=== PATIENT | female | born 1960 | race Caucasian/White ===

== ENCOUNTER 2018-06-15 07:04 | Inpatient (IN) ==
--- NOTE | 2018-06-08 14:07 | PAT Medication Instructions ---
Medication Instructions Date of Service June 08, 2018 Home Medications acetaminophen [Tylenol Arthritis1,300 mg PO Q8H PRN ascorbic acid (vitamin C) [[id number] mg PO QAM calcium carbonate-vitamin D31 tab PO QAM [id number] mg PO BID methotrexate sodium6 tab PO UD prednisone5 mg PO BID ASK your surgeon for instructions [id number] mg PO BID ASK your prescriber and surgeon methotrexate sodium6 tab PO UD DO NOT take the morning of surgery ascorbic acid (vitamin C) [[id number] mg PO QAM calcium carbonate-vitamin D31 tab PO QAM Take morning of surgery With a small sip of water, OTHERWISE NOTHING TO EAT OR DRINK AFTER MIDNIGHT: acetaminophen [Tylenol Arthritis1,300 mg PO Q8H PRN (okay to take up to 4 hours prior to surgery if needed) prednisone5 mg PO BID Take evening before surgery acetaminophen [Tylenol Arthritis1,300 mg PO Q8H PRN (if needed) prednisone5 mg PO BID Other Notes If you have any questions please call us at [phone] or [phone] or [phone] or [phone]
--- NOTE | 2018-06-09 11:36 | Anesthesiology Consultation ---
Date of Service June 09, 2018 Assessment & Plan (1) Encounter for pre-operative examination: Chart Review Chart Review: Acceptable Risk for Surgery and Patient seen in Pre Admission Testing Teaching & Discussion Pre-Anesthesia Teaching/Discussion Notes: Instructed NPO after midnight before surgery,except medications with 15 cc of water. Medication instructions provided according to the PAT guidelines. History Surgery Operation Date: 06/15/18 14:20 Proposed Procedures p Left Total Knee Arthroplasty - Dash Tyler DO Height/Weight Height: 5 ft 2 in Weight: 81.5 kg Allergies Allergy/AdvReac Type Severity Reaction Status Date / Time No Known Allergies Allergy Verified 05/19/18 14:00 Medications Home Medications Medication Instructions Recorded Confirmed Last Taken acetaminophen [Tylenol Arthritis 1,300 mg PO Q8H PRN 05/19/18 05/19/18 Unknown Pain] ascorbic acid (vitamin C) [Vitamin 500 mg PO QAM 05/19/18 05/19/18 Unknown C] calcium carbonate-vitamin D3 1 tab PO QAM 05/19/18 05/19/18 Unknown [Calcium 500 + D] indomethacin 25 mg PO BID 05/19/18 05/19/18 Unknown methotrexate sodium 6 tab PO UD 05/19/18 05/19/18 Unknown prednisone 5 mg PO BID 05/19/18 05/19/18 Unknown Past Medical History Medical History Anemia PCP MONITORING; S/P IRON INFUSIONS (03/2018) Obesity Osteoarthritis Rheumatoid arthritis ON MTX/CHRONIC PREDNISONE 5MG BID Past Family History Family History Brother Family history of diabetes mellitus Past Surgical History Surgical History History of total hip arthroplasty RIGHT Hx of foot surgery RIGHT Hx of toe surgery RIGHT 2ND AMPUTATION Past Anesthesia History No Hx of Anesthesia Complications and No Family Hx of Anesthesia Complications History of PONV No Motion Sickness Screening History of Motion Sickness: No Social History Smoking Status: Never smoker Do You Dip or Chew Tobacco: No Hx Alcohol Use: No Hx Substance Use: No Exercise / Class Metabolic Activity III < 4 Walking/Shop/Light housework (USES CANE PRN) Review of Systems Patient denies chest pain, shortness of breath, cough, wheezing, palpitations. Physical Exam Vital Signs VITALS BP 108/69 P 85 TEMP 98.2 SP02 94%RA RESP 14 Full neck and c-spine range of motion. Full TMJ range of motion. TMD 3.5 finger breaths Mallampati Score 3 Dentition: intact Lungs: clear throughout to auscultation Cardiac: regular rate and rhythm, II/ systolic murmur Spine: normal Carotid arteries: negative bruit Extremities: no edema Testing Electrocardiogram Date: 06/09/18 Findings: + NSR @ (79) Low voltage QRS. Chest X-Ray Date: 06/09/18 Findings: + NAD Mild compression deformity at L1. This is technically age-indeterminate but likely old. Mild interstitial thickening which is likely chronic. Echocardiogram Date: 06/11/17 LVEF 60%. No RWMA. No significant valvular disease. Trace TR. Cervical Spine Date: 06/09/18 Alignment appears preserved with neutral, flexion and extension views. No acute fracture or subluxation. Demineralized appearance of the bones with degenerative changes. Laboratory Results 06/09/18 11:46 06/09/18 11:46 Blood Type O Positive 06/09/18 11:46 Antibody Screen NEGATIVE 06/09/18 11:46 PT 10.4 Seconds (9.0-12.0) 06/09/18 11:46 INR 1.0 (0.9-1.1) 06/09/18 11:46 APTT 24.5 Seconds (21.0-31.0) 06/09/18 11:46 Hemoglobin A1c 5.1 % (4.5-5.6) 06/09/18 11:46 Urine Color Dark Yellow 06/09/18 Unknown Urine Appearance Turbid (Clear) H 06/09/18 Unknown Urine pH 7.5 (4.5-7.5) 06/09/18 Unknown Ur Specific [place] 1.024 (1.000-1.030) 06/09/18 Unknown Urine Protein Negative (Negative) 06/09/18 Unknown Urine Glucose (UA) Negative (Negative) 06/09/18 Unknown Urine Ketones Trace (Negative) H 06/09/18 Unknown Urine Nitrite Negative (Negative) 06/09/18 Unknown Ur Leukocyte Esterase Negative (Negative) 06/09/18 Unknown Urine WBC (Auto) 1-5 /hpf (0-5) 06/09/18 Unknown Urine RBC (Auto) 0-4 /hpf (0-4) 06/09/18 Unknown U Hyaline Cast (Auto) 1-5 /lpf (0-5) 06/09/18 Unknown U Epithel Cells (Auto) 10-20 /lpf (0-5) H 06/09/18 Unknown Urine Bacteria (Auto) Negative (Negative) 06/09/18 Unknown
--- NOTE | 2018-06-09 12:20 | XRay Report ---
XR cervical spine 2 or 3V HISTORY: 57 years-old Female RHEUMATOID ARTHRITIS chronic neck pain with history of rheumatoid arthr opathy COMPARISON: None available TECHNIQUE: 3 views of the cervical spine FINDINGS: Demineralized appearance of the bones. Moderate intervertebral disc space narrowing at C4-C5, C5-C6 a nd C6-C7 with mild multilevel spondylitic spurring and mild to moderate facet arthrosis. No acute fra cture or subluxation. Alignment appears preserved with neutral, flexion and extension views. No preve rtebral soft tissue swelling. Slight reversal of the normal cervical lordosis with flexion at C4-C5. IMPRESSION: 1. No acute fracture or subluxation. 2. Demineralized appearance of the bones with degenerative changes as above. The above report was generated using voice recognition software. It may contain grammatical, syntax o r spelling errors. Electronically signed by: Roland Steinberg M.D. 06/09/2018 12:19 PM
[2018-06-09 12:28] LABS: Basophils # (auto) 0.02 K/uL (0-0.2); Basophils % (auto) 0.2 %; Eosinophils # (auto) 0.02 K/uL (0-0.5); Eosinophils % (auto) 0.2 %; Hematocrit (blood only) 36.8 % (37-47); Hemoglobin 12.5 g/dL (12.0-16.0); Immature Granulocytes # (auto) 0.01 K/uL (0.00-0.02); Immature Granulocytes % (auto) 0.1 %; Lymphocytes # (auto) 0.87 K/uL (1.2-3.4); Lymphocytes % (auto) 8.4 %; Mean Corpuscular Volume 96.8 fL (80-100); Mean Platelet Volume 8.8 fL (7.4-10.4); Monocytes # (auto) 0.18 K/uL (0.11-0.59); Monocytes % (auto) 1.7 %; Neutrophils % (auto) 89.4 %; Platelet Count 278 K/uL (130-400); RDW Coefficient of Variation 13.9 % (11.5-14.5); RDW Standard Deviation 48.8 fL (36.4-46.3)
[2018-06-09 12:38] LABS: Partial Thromboplastin Ratio 0.9; Partial Thromboplastin Time 24.5 Seconds (21.0-31.0); Prothrombin Time 10.4 Seconds (9.0-12.0)
[2018-06-09 12:52] LABS: Estimated Average Glucose 100 mg/dl
[2018-06-09 13:02] LABS: Appearance Urine Turbid (Clear); Bacteria Urine Automated Negative (Negative); Bilirubin Urine Negative (Negative); Color Urine Dark Yellow; Glucose Urine UA Negative (Negative); Ketones Urine Trace (Negative); Leukocyte Esterase Urine Negative (Negative); Nitrite Urine Negative (Negative); Protein Urine Negative (Negative); Specific Gravity Urine 1.024 (1.000-1.030); Urobilinogen Urine Negative (Negative); pH Urine 7.5 (4.5-7.5)
--- NOTE | 2018-06-09 13:15 | XRay Report ---
XR chest Pre-admission PA/Lat HISTORY: Preop. COMPARISON: None. FINDINGS: Mild compression deformity at L1. This is technically age-indeterminate but likely old. No focal lung consolidations to suggest pneumonia. No evidence for pulmonary edema. Mild interstitial th ickening which is likely chronic. The heart is top normal in size. No pleural effusions. No pneumotho rax. IMPRESSION: No acute process. Electronically signed by: Juan J Carlos M.D. 06/09/2018 1:14 PM
[2018-06-09 13:25] LABS: Albumin Level 3.4 gm/dl (3.4-5.0); BUN Creatinine Ratio 29.6 (10-20); Calcium 9.5 mg/dl (8.5-10.1); Creatinine Clr Calc Pharmacy 84.4 ml/min; Est GFR (African American) 108.1; Est GFR (Non-African American) 93.2
--- NOTE | 2018-06-09 16:37 | History & Physical Report ---
Date of Service June 09, 2018 Assessment & Plan (1) Primary osteoarthritis of left knee: Risks and benefits of procedure discussed in detail today, patient would like to proceed with Left TKA @ [facility] as scheduled. will obtain PATs at [facility]. Will place on ASA 81mg po bid x 1 month post op, f/u 2 weeks post op for routine post-operative care and xray, sooner if having any problems. will make arrangements for HHPT at the time of discharge. stop her methotrexate 1 week prior and will resume 2 weeks after her surgery. History of Present Illness Chief Complaint: left knee pain Primary Care Provider: Kati Savage Ms Chandler is a 57 year old female who is here for a follow up of left knee pain, presents for pre-op prior to left total knee replacement at [facility]. She states that the symptoms have been chronic non-traumatic. The problem is unchanged. Currently the patient states that the symptoms are severe. The pain is described as aching, discomforting and throbbing. The symptoms occur continuously. She rates her current pain as 10/10. The symptoms are aggravated by daily activities, ascending stairs, descending stairs, first steps while awake, squatting and walking. Svitlana states that the symptoms are relieved by no specific activity. Patient is using straight cane and brace for ambulation. Patient has a walker at home she can use. Patient's PCP is Dr. Oleary. She lives in a one story home. The patient has had a previous MRI. Taking Tylenol for pain. Patient had cortisone injections. Patient has had visco injections. Allergies Allergy/AdvReac Type Severity Reaction Status Date / Time No Known Allergies Allergy Verified 05/19/18 14:00 Home Medications Home Medications Medication Instructions Recorded Confirmed Type acetaminophen [Tylenol Arthritis 1,300 mg PO Q8H PRN 05/19/18 05/19/18 History Pain] ascorbic acid (vitamin C) [Vitamin 500 mg PO QAM 05/19/18 05/19/18 History C] calcium carbonate-vitamin D3 1 tab PO QAM 05/19/18 05/19/18 History [Calcium 500 + D] indomethacin 25 mg PO BID 05/19/18 05/19/18 History methotrexate sodium 6 tab PO UD 05/19/18 05/19/18 History prednisone 5 mg PO BID 05/19/18 05/19/18 History Past Med/Surg History Medical History Anemia PCP MONITORING; S/P IRON INFUSIONS (03/2018) Obesity Osteoarthritis Rheumatoid arthritis ON MTX/CHRONIC PREDNISONE 5MG BID Surgical History History of total hip arthroplasty RIGHT Hx of foot surgery RIGHT Hx of toe surgery RIGHT 2ND AMPUTATION Family History Brother Family history of diabetes mellitus Social History Current Living Situation: Alone Other Information That Helps Us Care for You: No Feels Safe at Home: Yes Safety Concerns: Feels Safe At This Time Smoking Status: Never smoker Do You Dip or Chew Tobacco: No Hx Alcohol Use: No Hx Substance Use: No Beliefs That Will Affect Care: None Preferred Language: Tanzanian Communication Ability: Effective Cisco Network Architect Required: No Review of Systems All systems reviewed & are unremarkable except as noted in HPI & below Physical Exam 2 Constitutional: WD/WN, vitals as above no acute distress Respiratory: normal respiratory effort, lungs clear to auscultation Cardiovascular: RRR, no murmur, no edema Gastrointestinal (Abdomen): normal bowel sounds, soft, nontender, no hepatosplenomegaly Musculoskeletal: Left Knee Physical Exam Details Ankle ROM L * Active ROM - Factors: normal, Description: active pain free range of motion. Passive ROM - Factors: normal, Description: passive pain free range of motion. Hip ROM L * Active ROM - Factors: normal, Description: active pain free range of motion. Passive ROM - Factors: normal, Description: passive pain free range of motion. Knee ROM L * Active ROM - Flexion: 115 degrees, Extension: 3 degrees, Factors: pain, Description: active painful range of motion. Passive ROM - Flexion: 120 degrees , Extension: 3 degrees, Factors: pain, Description: passive painful range of motion. Strength LE Normal Strength Description - Normal lower extremity: Bilateral. Hip: Right: strength is normal, Left: strength is normal. Knee: Right: strength is normal, Left: strength is normal. Ankle/Foot: Right: strength is normal, Left: strength is normal. Knee * Inspection - Gait: limp. Alignment - Right: varus, Clinical, Left: varus. Ecchymosis - Right: none, Left: none. Effusion - Right: mild, Left: mild. Swelling - Right: mild. Maximum tenderness - Right: diffuse, Left: diffuse. Patella exam - Crepitation - Right: moderate, Left: moderate. Trinity's - Left: Positive. Ji's - lateral - Right: Positive, Left: Positive. Ji's - medial - Right: Positive, Left: Positive. Knee Comments Calf SNT, DP+2 Knee Normal Inspection - Atrophy - Right: Absent, Left: Absent. Patella exam - Apprehension - Right: Negative. Trinity's - Right: Negative. Valgus stress - Right: Negative , Left: Negative. Varus stress - Right: Negative, Left: Negative. Extensor lag - Right: Normal, Left: Normal. Neurovascular LE Normal Neurovascular examination including reflexes, sensation, and pulses is within normal limits. Results & Data Diagnostic Findings Left Knee X-ray: left knee series confirm advanced degenerative changes to the left knee, greatest medial compartments and patellofemoral joint, showing joint space narrowing, osteophyte formation and subchondral sclerosis. no acute bony pathology noted.
[~2018-06-15 07:04] MED LIST: ACETAMINOPHEN 500 MG TAB PO SCH; CEFAZOLIN 2000MG 2,000 MG/15 ML SYR IV SCH; CeleBREX 200 MG CAP PO SCH; FAMOTIDINE 20 MG TAB PO SCH; ROPIVACAINE 0.5% HCL/PF 150 MG, BUPIVACAINE 0.5% MPF 30 ML, EPINEPHrine 30MG/30ML (OR U... INFIL SCH; TRANEXAMIC ACID 1,000 MG **IV Intra-op IV SCH; TRANEXAMIC ACID 1,000 MG **IV Pre-op IV SCH; dexAMETHasone 4 MG TAB PO SCH
[2018-06-15] MEDS ORDERED: BUPIVACAINE/EPINEPHRINE 0.5% MPF 1:200,000 30 ML VIAL ONE (07:45)
[2018-06-15] MEDS ORDERED: BUPIVACAINE 0.5 % 5 MG/1 ML PF 10ML VIAL ONE (07:45)
[2018-06-15] MEDS ORDERED: DEXAMETHASONE SOD INJ 4 MG/ML VIAL ONE (07:45)
[2018-06-15] MEDS: LR 500ML BOLUS, THEN 15ML/HR IV SCH ×3 (08:09→12:45)
[2018-06-15] MEDS ORDERED: MIDAZOLAM HCL 1 MG/ML 2ML VIAL ONE ×3 (08:22→10:43)
[2018-06-15] MEDS ORDERED: fentaNYL citrate 100 MCG/2 ML VIAL ONE (08:22)
--- NOTE | 2018-06-15 08:43 | History & Physical Bridge Note ---
Date of Service June 15, 2018 History & Physical Bridge Note I have examined the patient, reviewed the History & Physical and in the interval since the performance of the History & Physical I have noted the following changes of clinical significance: no changes noted
[2018-06-15] MEDS ORDERED: BACITRACIN INJ 50,000 UNIT VIAL ONE (09:17)
[2018-06-15] MEDS ORDERED: ORTHO JOINT ANESTHETIC ONE (09:17)
[2018-06-15] MEDS ORDERED: POVIDONE-IODINE OP SOLN 30 ML BTL ONE (09:17)
[2018-06-15] MEDS ORDERED: ONDANSETRON INJ 2 MG/ML 2 ML VIAL IV PRN ×2 (09:36→12:40)
[2018-06-15] MEDS ORDERED: ePHEDrine sulfate 50 MG/ML AMP IV PRN (09:36)
[2018-06-15] MEDS ORDERED: fentaNYL citrate 100 MCG/2 ML VIAL IV PRN (09:36)
[2018-06-15] MEDS ORDERED: ATROPINE SULFATE 0.1 MG/ML 10ML SYR IV PRN (09:36)
[2018-06-15] MEDS ORDERED: LIDOCAINE HCL 2% 2 ML VIAL/AMP(20MG/ML) INFIL ONE (10:06)
[2018-06-15] MEDS ORDERED: PROPOFOL IV EMULSION 10 MG/ML 20 ML VIAL IV ONE ×2 (10:06→10:46)
[2018-06-15] MEDS ORDERED: KETAMINE HCL INJ 50 MG/ML 10 ML VIAL ONE (10:49)
--- NOTE | 2018-06-15 10:55 | Operative Report ---
Post Operative Report Pre & Post Diagnosis Operation Date: 06/15/18 10:00 Pre-Op Diagnosis: Left Knee Osteoarthritis Post-Op Diagnosis: Left Knee Osteoarthritis Procedure Operation Date: 06/15/18 10:00 Actual Procedures p Left Total Knee Arthroplasty(Left) utilizing Hightower & Nephew journey to non- bloc total knee arthroplasty size 4 femur 3 tibia 12 polyethylene 29 oval patella- Dash Tyler DO Surgeon Dash Tyler DO Human Resources Compliance Manager Tanner BHAKTA Estimated Blood Loss 5 Findings Consistent with Post-Op Diagnosis Patient presents with severe end-stage DJD left knee with joint disease no response to conservative management including anti-inflammatories injections Visco supplementations she is failed attempts at conservative management at the time of surgery no evidence of synovitis rheumatologic findings with a subchondral cystic changes marginal osteophytes aglo-sk-deyo tricompartmental Specimens Bone and cartilage Drains Medium bore Hemovac Complications none Disposition Accompanied Patient To Recovery: No Disposition: Recovery Room Indications Patient presents with complaints of ongoing pain attributed to her left knee is been no response to conservative therapy she has underlying rheumatoid disease bone to bone changes medial compartment lateral compartment patellofemoral compartment market synovitis subchondral cystic changes with marginal osteophytes she is failed attempts at conservative management and physical therapy anti-inflammatories relative rest activity modification corticosteroid injection Visco supplementation and bracing she presents for left total knee arthroplasty Description of Procedure After proper prepping and draping of the left lower extremity anterior midline incision was made over the region of the extensor extensor mechanism after meticulous hemostasis was obtained and maintained in subcutaneous tissues a medial parapatellar incision was made The patella was subluxed lateralward the medial lateral gutter were cleaned from any hypertrophic synovitis and scar tissue of the distal femoral block was placed and the distal femoral osteotomy cut was made subsequently the chamfers anterior and posterior osteotomy cuts were made utilizing the 4-in-1 block the tibia was subsequently subluxed anteriorward medial and ateral meniscal remnants were excised in their entirety remnants of the anterior and posterior cruciate ligaments were excised in their entirety excellent exposure of the proximal tibia was obtained the tibial osteotomy guide was placed on the proximal tibial osteotomy cut was made once again the knee was irrigated with copious amounts of sterile saline solution the patella was subsequently everted lateralward thickened scar tissue around the patella was removed the patella was subsequently cut utilizing a freehand technique and was drilled prepared for final preparation and placement of patella socially flexion-extension gaps were checked and the equal and symmetric trials were placed to the appropriate femoral and tibial trials with poly-spacer being placed for equal flexion and extension gaps and full range of motion including extension to 0 and flexion to 140 the trial components after having been taken to recovery range of motion was subsequently removed meticulous hemostasis was obtained and maintained subsequently a knee block injection of joint cocktail including ropivacaine 0.5% 150 mg. Bupivacaine 0.5 % epinephrine 1-200,030 mL's toradol 30 mg dexamethasone 4 mg ketamine 10 mg clonidine 100 micrograms normal saline solution 30 mg was infiltrated into the soft tissues of the posterior knee medial lateral gutters and periosteal synovium special attention was paid to protect neurovascular structures at all times subsequently trial components having been removed the knee was irrigated with sterile saline solution. debris was removed the proximal tibia was subsequently prepared and was made ready for the placement of the tibial component tibial component was also cemented and tamped into position the femoral component was subsequently placed and cemented in the position the patellar component was subsequently cemented in position because hemostasis once again obtained and maintained a thorough synovectomy of rheumatoid synovium was performed back to stable margins intact hemostasis was obtained and maintained fit of the components of both extension and flexion mid flexion was checked to be excellent stability in all ranges of motion patient told procedure well wound having been thoroughly irrigated with debridement and debridement lavage was performed as well as a medial parapatellar incision closed with #1 Vicryl in interrupted fashion subcutaneous was closed with #2 Vicryl skin was closed with skin clips. PA-C was necessary for prepping and drapping as well as wound closure of deep fascia Sub cutaneous tissue and skin and was necessary for the case. A sterile compressive dressing was placed patient was taken to recovery in stable condition of report dictated by Jayson I attest to the content of the Intraoperative Record and any orders documented therein. Any exceptions are noted below. I attest to the content of the Intraoperative Record and any orders documented therein. Any exceptions are noted below.
--- NOTE | 2018-06-15 12:18 | Anesthesiology Progress Note ---
Date of Service June 15, 2018 Anesthesia Post Procedure Vital Signs Vital Signs: Temp Pulse Pulse Resp BP Pulse Ox 06/15/18 12:00 82 14 98/65 L 94 06/15/18 11:50 84 16 109/63 96 06/15/18 11:40 90 16 104/62 96 06/15/18 11:33 36.4 C L 92 H 18 99/56 L 97 06/15/18 08:06 36.6 C 86 20 121/74 95 Pain Intensity Left Knee: Pain Intensity: 0 Notes Mental Status: alert / awake / arousable Patient Amnestic to Procedure: Yes Nausea / Vomiting: adequately controlled Pain: adequately controlled Airway Patency, RR, SpO2: stable & adequate BP & HR: stable & adequate Hydration State: stable & adequate Neuraxial Anesthesia: was administered and sensory block is resolving Anesthetic Complications: no major complications apparent
[2018-06-15] MEDS ORDERED: NALOXONE HCL 0.4 MG/1 ML VIAL/CARP IV PRN (12:40)
[2018-06-15] MEDS ORDERED: BISACODYL 10 MG SUPP PR PRN (12:40)
[2018-06-15] MEDS ORDERED: HYDROmorphone INJ 0.5 MG/0.5 ML SYR IV PRN (12:40)
[2018-06-15] MEDS ORDERED: METOCLOPRAMIDE HCL INJ 5 MG/ML 2 ML VIAL IV PRN (12:40)
[2018-06-15] MEDS ORDERED: MAGNESIUM HYDROXIDE SUSP 30 ML UDC PO PRN (12:40)
[2018-06-15] MEDS ORDERED: OXYCODONE HCL IR 5 MG TAB (IMMEDIATE RELEASE) PO PRN (12:40)
--- NOTE | 2018-06-15 13:08 | XRay Report ---
LEFT KNEE 2 VIEWS History: Left total knee arthroplasty. Degenerative arthritis. Postop. FINDINGS: The patient is status post a left total knee arthroplasty. The hardware is intact. No fract ure or dislocation. Skin lashanda and surgical drains are in place. IMPRESSION: Left total knee arthroplasty. No evidence for hardware complication. Electronically signed by: Juan J Carlos M.D. 06/15/2018 1:06 PM
[2018-06-15] MEDS: SODIUM CHLORIDE 0.9% 1000ML 1,000 ML IV SCH (14:50)
[2018-06-15] MEDS: KETOROLAC TROMETHAMINE 15 MG/ML VIAL IV SCH ×2 (14:54→20:49)
[2018-06-15] MEDS: CEFAZOLIN 2000MG 2,000 MG/15 ML SYR IV SCH (18:57)
[2018-06-15] MEDS: ASPIRIN 81 MG ECTAB PO SCH (20:49)
[2018-06-15] MEDS: DOCUSATE SODIUM 100 MG CAP PO SCH (20:49)
[2018-06-15] MEDS ORDERED: SENNA 8.6 MG TAB PO SCH (21:00)
[2018-06-15] MEDS: ACETAMINOPHEN 500 MG TAB PO SCH (21:05)
[2018-06-16] MEDS: CEFAZOLIN 2000MG 2,000 MG/15 ML SYR IV SCH (01:43)
[2018-06-16] MEDS: KETOROLAC TROMETHAMINE 15 MG/ML VIAL IV SCH ×2 (01:44→08:16)
[2018-06-16] MEDS: ACETAMINOPHEN 500 MG TAB PO SCH ×2 (05:41→14:04)
[2018-06-16] MEDS: SODIUM CHLORIDE 0.9% 1000ML 1,000 ML IV SCH (06:54)
[2018-06-16 07:20] LABS: Hematocrit (blood only) 29.2 % (37-47); Mean Corpuscular Hgb Conc 34.2 g/dL (32-36); Mean Corpuscular Volume 95.7 fL (80-100); Mean Platelet Volume 8.8 fL (7.4-10.4); Platelet Count 245 K/uL (130-400); RDW Coefficient of Variation 13.9 % (11.5-14.5); RDW Standard Deviation 48.1 fL (36.4-46.3); Red Blood Count 3.05 M/uL (4.2-5.4); White Blood Count 12.54 K/uL (4.8-10.8)
[2018-06-16 07:43] LABS: BUN Creatinine Ratio 24.9 (10-20); Calcium 8.9 mg/dl (8.5-10.1); Creatinine Clr Calc Pharmacy 90.9 ml/min; Est GFR (African American) 111.5; Est GFR (Non-African American) 96.2; Potassium 3.7 mmol/L (3.5-5.1)
[2018-06-16] MEDS: DOCUSATE SODIUM 100 MG CAP PO SCH (08:17)
[2018-06-16] MEDS: ASPIRIN 81 MG ECTAB PO SCH (08:17)
[2018-06-16] MEDS ORDERED: CALCIUM 600MG + VIT D 400 IU TAB PO SCH (09:00)
[2018-06-16] MEDS ORDERED: MULTIVITAMIN TAB PO SCH (09:00)
[2018-06-16] MEDS ORDERED: ASCORBIC ACID 500 MG TAB PO SCH (09:00)
--- NOTE | 2018-06-16 12:49 | Orthopedic Progress Note ---
Date of Service June 16, 2018 Assessment & Plan (1) History of total left knee replacement (TKR): POD #1 s/p Left TKA pt/ot dvt proph with [facility]ATORE/SCD/ASA plan for d/c home with home health PT later today. will d/c with drain in and have removed in AM by home nursing. hold methotrexate for 2 weeks post op. Subjective POD #1 s/p Left TKA denies CP/SOB, denies fever and chills Physical Exam 2 Vital Signs (Past 24 Hours): Last Vital Signs Temp 36.9 C 06/16/18 11:05 Pulse 68 06/16/18 11:05 Resp 18 06/16/18 11:05 BP 95/56 L 06/16/18 11:05 Pulse Ox 92 06/16/18 11:05 Musculoskeletal: Left Knee Exam: NVDI, calf soft and non tender, negative carlos sign. DP palpable, able to wiggle toes/ankle movement without difficulty. silverlon dressing clean dry and intact. Vital Signs Temp 36.9 C 06/16/18 11:05 Pulse 68 06/16/18 11:05 Resp 18 06/16/18 11:05 BP 95/56 L 06/16/18 11:05 Pulse Ox 92 06/16/18 11:05 Intake & Output 06/15/18 06/16/18 06/16/18 18:59 06:59 18:59 Intake Total 1590 / 1590 1295 / 1295 Output Total 830 / 830 1825 / 1825 Balance 760 / 760 -530 / -530 Weight 80.649 kg Intake: IV 700 / 700 995 / 995 Lr 1,000 ml @ 999 mls/hr IV . 700 / 700 Q1H1M [facility] Rx#: [id number] Nss 1000ML 1,0 00 ml @ 100 mls/ 995 / 995 hr IV .Q10H SC H Rx#:[id number] IV Perioperative 650 / 650 Oral 240 / 240 300 / 300 Output: Urine 800 / 800 1400 / 1400 Estimated Blood Loss 5 / 5 Drain Output 425 / 425 Left Knee Hemo vac 425 / 425 Results & Data Laboratory Results Laboratory Results WBC 12.54 K/uL (4.8-10.8) H 06/16/18 06:54 RBC 3.05 M/uL (4.2-5.4) L 06/16/18 06:54 Hgb 10.0 g/dL (12.0-16.0) L 06/16/18 06:54 Hct 29.2 % (37-47) L 06/16/18 06:54 MCV 95.7 fL (80-100) 06/16/18 06:54 MCH 32.8 pg (25-34) 06/16/18 06:54 MCHC 34.2 g/dL (32-36) 06/16/18 06:54 RDW Std Deviation 48.1 fL (36.4-46.3) H 06/16/18 06:54 RDW Coeff of Anita 13.9 % (11.5-14.5) 06/16/18 06:54 Plt Count 245 K/uL (130-400) 06/16/18 06:54 MPV 8.8 fL (7.4-10.4) 06/16/18 06:54 Immature Gran % (Auto) 0.1 % 06/09/18 11:46 Neut % (Auto) 89.4 % 06/09/18 11:46 Lymph % (Auto) 8.4 % 06/09/18 11:46 [place] % (Auto) 1.7 % 06/09/18 11:46 Eos % (Auto) 0.2 % 06/09/18 11:46 Baso % (Auto) 0.2 % 06/09/18 11:46 Immature Gran # (Auto) 0.01 K/uL (0.00-0.02) 06/09/18 11:46 Neut # (Auto) 9.30 K/uL (1.4-6.5) H 06/09/18 11:46 Lymph # (Auto) 0.87 K/uL (1.2-3.4) L 06/09/18 11:46 [place] # (Auto) 0.18 K/uL (0.11-0.59) 06/09/18 11:46 Eos # (Auto) 0.02 K/uL (0-0.5) 06/09/18 11:46 Baso # (Auto) 0.02 K/uL (0-0.2) 06/09/18 11:46 PT 10.4 Seconds (9.0-12.0) 06/09/18 11:46 INR 1.0 (0.9-1.1) 06/09/18 11:46 APTT 24.5 Seconds (21.0-31.0) 06/09/18 11:46 PTT Ratio 0.9 06/09/18 11:46 Sodium 141 mmol/L (136-145) 06/16/18 06:54 Potassium 3.7 mmol/L (3.5-5.1) 06/16/18 06:54 Chloride 111 mmol/L (98-107) H 06/16/18 06:54 Carbon Dioxide 22 mmol/L (21-32) 06/16/18 06:54 Anion Gap 8.0 (3-11) 06/16/18 06:54 BUN 17 mg/dl (7-18) 06/16/18 06:54 Creatinine 0.67 mg/dl (0.6-1.2) 06/16/18 06:54 Est Cr Clr Drug Dosing 90.9 ml/min 06/16/18 06:54 Est GFR ( Amer) 111.5 06/16/18 06:54 Est GFR (Non-Af Amer) 96.2 06/16/18 06:54 BUN/Creatinine Ratio 24.9 (10-20) H 06/16/18 06:54 Glucose 149 mg/dl (70-99) H 06/16/18 06:54 Estimat Average Glucose 100 mg/dl 06/09/18 11:46 Hemoglobin A1c 5.1 % (4.5-5.6) 06/09/18 11:46 Calcium 8.9 mg/dl (8.5-10.1) 06/16/18 06:54 Albumin 3.4 gm/dl (3.4-5.0) 06/09/18 11:46 Urine Color Dark Yellow 06/09/18 Unknown Urine Appearance Turbid (Clear) H 06/09/18 Unknown Urine pH 7.5 (4.5-7.5) 06/09/18 Unknown Ur Specific [place] 1.024 (1.000-1.030) 06/09/18 Unknown Urine Protein Negative (Negative) 06/09/18 Unknown Urine Glucose (UA) Negative (Negative) 06/09/18 Unknown Urine Ketones Trace (Negative) H 06/09/18 Unknown Urine Blood Negative (Negative) 06/09/18 Unknown Urine Nitrite Negative (Negative) 06/09/18 Unknown Urine Bilirubin Negative (Negative) 06/09/18 Unknown Urine Urobilinogen Negative (Negative) 06/09/18 Unknown Ur Leukocyte Esterase Negative (Negative) 06/09/18 Unknown Urine WBC (Auto) 1-5 /hpf (0-5) 06/09/18 Unknown Urine RBC (Auto) 0-4 /hpf (0-4) 06/09/18 Unknown U Hyaline Cast (Auto) 1-5 /lpf (0-5) 06/09/18 Unknown U Epithel Cells (Auto) 10-20 /lpf (0-5) H 06/09/18 Unknown Urine Bacteria (Auto) Negative (Negative) 06/09/18 Unknown Blood Type O Positive 06/09/18 11:46 Antibody Screen NEGATIVE 06/09/18 11:46 Diagnostic Findings Left Knee X-ray: FINDINGS: The patient is status post a left total knee arthroplasty. The hardware is intact. No fracture or dislocation. Skin lashanda and surgical drains are in place. IMPRESSION: Left total knee arthroplasty. No evidence for hardware complication.
[2018-06-16] MEDS ORDERED: CeleBREX 200 MG CAP PO SCH (21:00)
--- NOTE | 2018-06-17 12:18 | Discharge Summary ---
Date of Service Date of Admission: 06/15/18 Date of Discharge: June 16, 2018 Admission HPI Per Admitting Provider Ms Chandler is a 57 year old female who is here for a follow up of left knee pain, presents for pre-op prior to left total knee replacement at [facility]. She states that the symptoms have been chronic non-traumatic. The problem is unchanged. Currently the patient states that the symptoms are severe. The pain is described as aching, discomforting and throbbing. The symptoms occur continuously. She rates her current pain as 10/10. The symptoms are aggravated by daily activities, ascending stairs, descending stairs, first steps while awake, squatting and walking. Svitlana states that the symptoms are relieved by no specific activity. Patient is using straight cane and brace for ambulation. Patient has a walker at home she can use. Patient's PCP is Dr. Oleary. She lives in a one story home. The patient has had a previous MRI. Taking Tylenol for pain. Patient had cortisone injections. Patient has had visco injections. Principal Diagnosis left knee DJD Discharge Exam Musculoskeletal Left Knee: NVDI, calf SNT, negative carlos sign. DP palpable, able to wiggle toes /ankle movement without difficulty. dressing clean dry and intact. expected post -operative bruising noted. Laboratory Results WBC 12.54 K/uL (4.8-10.8) H 06/16/18 06:54 RBC 3.05 M/uL (4.2-5.4) L 06/16/18 06:54 Hgb 10.0 g/dL (12.0-16.0) L 06/16/18 06:54 Hct 29.2 % (37-47) L 06/16/18 06:54 MCV 95.7 fL (80-100) 06/16/18 06:54 MCH 32.8 pg (25-34) 06/16/18 06:54 MCHC 34.2 g/dL (32-36) 06/16/18 06:54 RDW Std Deviation 48.1 fL (36.4-46.3) H 06/16/18 06:54 RDW Coeff of Anita 13.9 % (11.5-14.5) 06/16/18 06:54 Plt Count 245 K/uL (130-400) 06/16/18 06:54 MPV 8.8 fL (7.4-10.4) 06/16/18 06:54 Immature Gran % (Auto) 0.1 % 06/09/18 11:46 Neut % (Auto) 89.4 % 06/09/18 11:46 Lymph % (Auto) 8.4 % 06/09/18 11:46 Treasure % (Auto) 1.7 % 06/09/18 11:46 Eos % (Auto) 0.2 % 06/09/18 11:46 Baso % (Auto) 0.2 % 06/09/18 11:46 Immature Gran # (Auto) 0.01 K/uL (0.00-0.02) 06/09/18 11:46 Neut # (Auto) 9.30 K/uL (1.4-6.5) H 06/09/18 11:46 Lymph # (Auto) 0.87 K/uL (1.2-3.4) L 06/09/18 11:46 Treasure # (Auto) 0.18 K/uL (0.11-0.59) 06/09/18 11:46 Eos # (Auto) 0.02 K/uL (0-0.5) 06/09/18 11:46 Baso # (Auto) 0.02 K/uL (0-0.2) 06/09/18 11:46 PT 10.4 Seconds (9.0-12.0) 06/09/18 11:46 INR 1.0 (0.9-1.1) 06/09/18 11:46 APTT 24.5 Seconds (21.0-31.0) 06/09/18 11:46 PTT Ratio 0.9 06/09/18 11:46 Sodium 141 mmol/L (136-145) 06/16/18 06:54 Potassium 3.7 mmol/L (3.5-5.1) 06/16/18 06:54 Chloride 111 mmol/L (98-107) H 06/16/18 06:54 Carbon Dioxide 22 mmol/L (21-32) 06/16/18 06:54 Anion Gap 8.0 (3-11) 06/16/18 06:54 BUN 17 mg/dl (7-18) 06/16/18 06:54 Creatinine 0.67 mg/dl (0.6-1.2) 06/16/18 06:54 Est Cr Clr Drug Dosing 90.9 ml/min 06/16/18 06:54 Est GFR ( Amer) 111.5 06/16/18 06:54 Est GFR (Non-Af Amer) 96.2 06/16/18 06:54 BUN/Creatinine Ratio 24.9 (10-20) H 06/16/18 06:54 Glucose 149 mg/dl (70-99) H 06/16/18 06:54 Estimat Average Glucose 100 mg/dl 06/09/18 11:46 Hemoglobin A1c 5.1 % (4.5-5.6) 06/09/18 11:46 Calcium 8.9 mg/dl (8.5-10.1) 06/16/18 06:54 Albumin 3.4 gm/dl (3.4-5.0) 06/09/18 11:46 Urine Color Dark Yellow 06/09/18 Unknown Urine Appearance Turbid (Clear) H 06/09/18 Unknown Urine pH 7.5 (4.5-7.5) 06/09/18 Unknown Ur Specific [place] 1.024 (1.000-1.030) 06/09/18 Unknown Urine Protein Negative (Negative) 06/09/18 Unknown Urine Glucose (UA) Negative (Negative) 06/09/18 Unknown Urine Ketones Trace (Negative) H 06/09/18 Unknown Urine Blood Negative (Negative) 06/09/18 Unknown Urine Nitrite Negative (Negative) 06/09/18 Unknown Urine Bilirubin Negative (Negative) 06/09/18 Unknown Urine Urobilinogen Negative (Negative) 06/09/18 Unknown Ur Leukocyte Esterase Negative (Negative) 06/09/18 Unknown Urine WBC (Auto) 1-5 /hpf (0-5) 06/09/18 Unknown Urine RBC (Auto) 0-4 /hpf (0-4) 06/09/18 Unknown U Hyaline Cast (Auto) 1-5 /lpf (0-5) 06/09/18 Unknown U Epithel Cells (Auto) 10-20 /lpf (0-5) H 06/09/18 Unknown Urine Bacteria (Auto) Negative (Negative) 06/09/18 Unknown Blood Type O Positive 06/09/18 11:46 Antibody Screen NEGATIVE 06/09/18 11:46 Discharge Data Allergies Allergy/AdvReac Type Severity Reaction Status Date / Time No Known Allergies Allergy Verified 06/15/18 07:57 Consultations 06/15/18 12:40 Consult Case Management - Discharge Planning Routine Procedures Performed Operation Date: 06/15/18 10:00 Actual Procedures p Left Total Knee Arthroplasty(Left) - Dash Tyler DO Ordered Studies 06/15/18 05:00 US - OR guided needle placemen Routine Hospital Course (1) History of total left knee replacement (TKR): POD #1 s/p Left TKA pt/ot dvt proph with SALVATORE/SCD/ASA plan for d/c home with home health PT later today. will d/c with drain in and have removed in AM by home nursing. hold methotrexate for 2 weeks post op. Patient was a same day admission after undergoing a successful left TKA. She tolerated the procedure well. Post-operatively, her activity was progressed and well tolerated. Please refer to daily progress notes and PT notes for complete details. After exam on 06/16/18, patient felt to be stable for discharge home with home health PT. She will also be discharged with the hemovac in and will have home health pull it on AM 06/17/18. Patient will f/u in the office in 2 weeks for further evaluation including x-rays and incision check, sooner if having any issues or concerns. Total Time Total Time Spent Total Time Spent (In Minutes): 20 Total Time Includes: Examination of the Patient, Discharge Planning and Medication Reconciliation Discharge Plan Discharge Items Patient Disposition: Home - Home Health Services Reason For Visit: Left Knee Osteoarthritis Discharge Diagnosis: Left Knee Osteoarthritis Condition: Good Discharge Goals: Decrease discomfort and Improve function Activity: Per 'Additional Instructions' section Lifting: Wait until after follow-up appointment Weightbearing: Left weightbearing Weightbearing Comment: as tolerated with walker Non-emergency contact: Surgeon Call non-emergency contact if: your pain is not controlled, your temperature is above 101.5, your wound has increased redness and your wound has increased drainage Follow-up/Referrals: Kati Savage M.D. [Primary Care Provider] - Diet: Regular Addtl Provider Instructions: ACTIVITY RECOMMENDATIONS: SELF CARE INSTRUCTIONS AFTER TOTAL KNEE REPLACEMENT A. You may need to continue a physical therapy program after discharge from the hospital. There are several options available to you. Your doctor will assist you in selecting the best one for you. 1. An out-patient facility 2 to 3 times a week for therapy or home therapy. 2. Continue working on all exercises taught to you in the hospital. Your goals should be to increase bending of your knee to 90 degrees and beyond and to fully straighten your knee. B. You may progress at your own pace from walking with a walker or crutches to a cane; then to no assistive devices. C. Make walking a part of your daily routine. Be up as much as comfortable with rest periods throughout the day. Rest with leg elevation is very important. Use the ice wrap frequently for the first 3-4 weeks. D. There are no restrictions on activities. You may ride in a car, shop, participate in electric hoist operator and all social activities. E. Wear the long elastic stockings (SALVATORE hose) 20 hours a day for 2 weeks after surgery. They can be removed several times a day for laundering and for a bath. F. You may shower, no tub baths until cleared by your doctor. SPECIAL CARE INSTRUCTIONS: VERY IMPORTANT TO READ AND REVIEW A. There are a few signs you need to watch for after you are home. Call [facility] if you notice any of the followin. Increased severe knee pain. Some pain is expected especially when you exercise. 2. Increased swelling in your leg or knee; pain or swelling of the calf muscle in either lower leg. 3. Any fluid drainage from the incision. 4. Shortness of breath or chest pain. B. Please call [facility] at if you have any concerns or questions about your operation or recovery. The doctor or his nurse will return your call promptly. C. You must take antibiotics before dental work, bladder, bowel or other surgery. Your doctor will provide you with a permanent care to carry describing this precaution. IMPORTANT: * REMEMBER TO TAKE ASPIRIN, 81 MG, TWICE DAILY FOR 4 WEEKS UNLESS OTHERWISE DIRECTED. THIS IS YOUR BLOOD THINNER. * HIGH RISK PATIENTS MAY BE PRESCRIBED A STRONGER BLOOD THINNER. THIS WILL BE PROVIDED AT DISCHARGE. * CALL IF INCREASED PAIN, REDNESS, DRAINAGE OR FEVER GREATER THAT 101. * WEAR SALVATORE HOSE 20 HOURS PER DAY FOR 2 WEEKS. * JANET Dressing- This is a large suction dressing covering your incision. This will help pull any excess drainage from the wound and allow your incision to heal properly. You may shower with this if you can keep the unit outside of the shower. If any bleeding or leakage is noted please call your doctor's office. This will remain on your incision for 7 days and then should be removed. This can be done yourself or by the home nursing staff if applicable. The entire unit is disposable once removed. Once removed, keep incision clean and dry. If redness or drainage is noted, please call your surgeon. FOLLOW UP VISIT: If appointment is not already scheduled: Please call [facility] to make a follow-up appointment for 2 weeks after your surgery at . Prescriptions: New aspirin [Ecotrin Low Strength] 81 mg Tablet,Delayed Release (Dr/Ec) 81 mg PO BID 30 Days Qty: 60 RF: 0 acetaminophen [Pain Reliever] 500 mg Tablet 1,000 mg PO Q8 10 Days Qty: 60 RF: 0 celecoxib [Celebrex] 200 mg Capsule 200 mg PO BID Qty: 60 RF: 0 docusate sodium 100 mg Capsule 100 mg PO BID 5 Days Qty: 10 RF: 0 oxycodone 5 mg Tablet 5 - 10 mg PO Q4H PRN (Reason: pain) Qty: 30 RF: 0 cefadroxil 500 mg capsule 500 mg PO BID 10 Days Qty: 20 RF: 0 Continue ascorbic acid (vitamin C) [Vitamin C] 500 mg Tablet 500 mg PO QAM RF: 0 calcium carbonate-vitamin D3 [Calcium 500 + D] 500 mg(1,250mg) -200 unit Tablet 1 tab PO QAM RF: 0 Discontinued prednisone 5 mg Tablet 5 mg PO BID RF: 0 methotrexate sodium 2.5 mg Tablet 6 tab PO UD RF: 0 indomethacin 25 mg Capsule 25 mg PO BID RF: 0 acetaminophen [Tylenol Arthritis Pain] 650 mg Tablet Extended Release 1,300 mg PO Q8H PRN (Reason: Pain) RF: 0 Stand-Alone Forms: [facility] Discharge Orders: Discharge Order (Routine); Ordered 06/16/18 Ordered By: Tanner Rodriguez Admission Data Admit Date/Time: 06/15/18 11:39 Attending Provider: Dash Tyler Admit Provider: Dash Tyler Primary Care Provider: Kati Savage Other Providers: Tanner Rodriguez ; Coy Brunson Service: Surgical Services Other Interventions: Discharge Summary Assessment (RN) Last Done: 06/16/18 14:09 Pending Studies at Discharge: No DC Date/Time DO NOT enter until pt leaves facility: 06/16/18 16:07
== END 2018-06-16 16:07 | disposition home health service (06) | DRG 470 ==
LOC: ASU 07:04 → 3E 11:39
DX: M17.12 Unilateral primary osteoarthritis, left knee; Z79.1 Long term (current) use of non-steroidal anti-inflammatories (NSAID); Z79.899 Other long term (current) drug therapy; M06.9 Rheumatoid arthritis, unspecified; Z79.52 Long term (current) use of systemic steroids